=== PATIENT | male | born 1950 | race Two or more races ===

== ENCOUNTER 2017-10-18 07:32 | Inpatient (IN) | payer OTHER, MEDICARE ==
[~2017-10-18] VITALS: Ht 170.2 cm; Wt 72.6 kg
[2017-10-18 09:13] LABS: BASOPHILS % 1.4 % (0.0-2.0); HEMATOCRIT. 25.8 % (42.0-52.0); HEMOGLOBIN. 7.9 g/dL (14.0-18.0); LYMPHOCYTES % 34.2 % (20.0-50.0); MEAN CORPUSCULAR HEMOGLOBIN 18.4 pg (28.0-32.0); MEAN CORPUSCULAR VOLUME 60.1 fL (80.0-94.0); MONOCYTES % 8.4 % (2.0-8.0); RED BLOOD CELL COUNT 4.29 mill/uL (4.7-6.1); RED CELL DISTRIBUTION WIDTH 18.6 % (11.6-14.6)
[2017-10-18 09:21] LABS: CHLORIDE 104 mEq/L (98-107)
[2017-10-18 09:29] LABS: ETHANOL BLOOD < 10 mg/dL
[2017-10-18 09:40] LABS: PLATELET ESTIMATE NORMAL
[2017-10-18 10:15] LABS: CLARITY URINE CLEAR (CLEAR); COLOR URINE YELLOW (YELLOW); KETONES URINE NEGATIVE (NEGATIVE); LEUKOCYTE ESTERASE URINE NEGATIVE (NEGATIVE); NITRITE URINE NEGATIVE (NEGATIVE); OCCULT BLOOD URINE NEGATIVE (NEGATIVE); PROTEIN URINE NEGATIVE (NEGATIVE)
[2017-10-18 10:41] LABS: *AMPHETAMINES SCREEN URINE NEGATIVE (NEGATIVE); CANNABINOID URINE SCREEN NEGATIVE (NEGATIVE)
[2017-10-18 10:42] LABS: *BARBITURATES SCREEN URINE NEGATIVE (NEGATIVE); *BENZODIAZEPINES SCREEN URINE NEGATIVE (NEGATIVE); *COCAINE SCREEN URINE NEGATIVE (NEGATIVE)
[2017-10-18 10:43] LABS: METHADONE URINE SCREEN NEGATIVE (NEGATIVE); OPIATES URINE SCREEN NEGATIVE (NEGATIVE); PHENCYCLIDINE URINE SCREEN NEGATIVE (NEGATIVE)
[2017-10-18] MEDS ORDERED: IOHEXOL-300 100 ML BOTTLE ONE (11:27)
[2017-10-18] MEDS ORDERED: BENZONATATE 100MG CAPSULE PO PRN (13:30)
[2017-10-18] MEDS ORDERED: ALBUTEROL (0.5%) 2.5MG/0.5ML NEB HHN ONE (13:30)
[2017-10-18 16:26] VITALS: BP 146/76
[2017-10-18] MEDS ORDERED: IPRATROPIUM/ALBUTEROL 0.5-3(2.5)MG/3ML NEB INH PRN (18:30)
[2017-10-18] MEDS ORDERED: DIPHENHYDRAMINE 50MG/ML VIAL IV PRN (18:30)
[2017-10-18] MEDS ORDERED: ACETAMINOPHEN 325MG TABLET PO PRN (18:30)
[2017-10-18] MEDS ORDERED: KETOROLAC 30MG/ML VIAL IV PRN (18:30)
[2017-10-18] MEDS ORDERED: MAGNESIUM/ALUMINUM HYDROXIDE/SIMETHICONE 30ML UDC PO PRN (19:00)
[2017-10-18] MEDS ORDERED: ONDANSETRON 4MG ODT PO PRN (19:15)
[2017-10-18] MEDS: SODIUM CHLORIDE 0.9% 1,000 ML IV SCH ×2 (19:15→22:02)
[2017-10-18 19:54] LABS: TOTAL IRON BINDING CAPACITY 379 ug/dL (250-450)
[2017-10-18 20:00] VITALS: BP 115/70
[2017-10-18] MEDS ORDERED: IRON SUCROSE COMPLEX 100 MG/5 ML ML IV SCH (20:00)
[2017-10-18 20:24] LABS: CARCINO EMBRYONIC ANTIGEN 2.5 ng/ml
[2017-10-18] MEDS ORDERED: CYANOCOBALAMIN 1000MCG/ML VIAL IM NR (23:45)
[2017-10-19] VITALS: BP 105/72
[2017-10-19 04:30] VITALS: BP 111/55
[2017-10-19 05:41] LABS: HEMATOCRIT 25.2 % (42.0-52.0); HEMOGLOBIN 7.6 g/dL (14.0-18.0); MEAN CORPUSCULAR HEMOGLOBIN 18.2 pg (28.0-32.0); MEAN CORPUSCULAR VOLUME 60.6 fL (80.0-94.0); PLATELET 421 x1000/uL (130-400); RED BLOOD CELL COUNT 4.15 mill/uL (4.7-6.1); RED CELL DISTRIBUTION WIDTH 18.8 % (11.6-14.6)
[2017-10-19 08:00] VITALS: BP 124/62
[2017-10-19] MEDS ORDERED: LISI10TA5 PO (09:33)
[2017-10-19] MEDS ORDERED: ASPI-1159 PO (09:33)
[2017-10-19] MEDS ORDERED: OMEP20TA2 PO (09:33)
[2017-10-19 12:04] VITALS: BP 118/54
[2017-10-19 13:01] VITALS: BP 121/60
== END 2017-10-19 13:38 | disposition home or self-care (01) | DRG 379 ==
LOC: ER 07:32 → 7WST 13:16 → EDBEDREQ 13:19 → EDBEDREQTM 13:19 → ENRESERV 13:29
PROVIDERS: ADMIT Internal Medicine; ATTEND Internal Medicine
DX: K92.2 Gastrointestinal hemorrhage, unspecified (principal); I10 Essential (primary) hypertension; D50.9 Iron deficiency anemia, unspecified; Z79.899 Other long term (current) drug therapy
CPT/HCPCS: 36415; 71045; 74177; 80053; 80305; 81003; 82378; 82607; 82962; 83540; 83550; 83605; 83690; 83880; 84484; 85025; 85027; 93005; 99285; G0482; J3420; J7030; Q9967

== ENCOUNTER 2022-02-04 15:28 | Inpatient (IN) | payer MEDICARE, OTHER ==
[~2022-02-04] VITALS: Ht 167.6 cm; Wt 68.5 kg
[~2022-02-04 15:28] MED LIST: ASPI-1497 PO; LISI10TA26 PO; OMEP20TA23 PO
[2022-02-04 16:17] LABS: BG BASE EXCESS -4.1 mmol/L (-2.0-2.0); BG CARBOXYHEMOGLOBIN 0.4 % (0.5-1.5); BG DEOXYHEMOGLOBIN 2.5 % (0.0-5.0); BG FRACTION INSPIRED OXYGEN 21; BG HCO3 ACT 20.3 mmol/L (22.0-26.0); BG METHEMOGLOBIN 0.4 % (0.0-1.5); BG OXYGEN SATURATION 97.5 % (92.0-98.5); BG OXYHEMOGLOBIN 96.7 % (94.0-97.0); BG PCO2 34.7 mmHg (35.0-45.0); BG PH 7.386 (7.350-7.450); BG PO2 111.5 mmHg (75.0-100.0); BG SAMPLE SITE RIGHT RADIAL; BG TOTAL HEMOGLOBIN 10.9 g/dL (12.0-18.0); BG VENT MODE ROOM AIR
[2022-02-04 16:55] LABS: BASOPHILS % 0.2 % (0.0-2.0); EOSINOPHILS % 1.1 % (0.0-5.0); HEMATOCRIT. 31.1 % (42.0-52.0); HEMOGLOBIN. 10.2 g/dL (14.0-18.0); MEAN CORPUSCULAR HEMOGLOBIN 28.3 pg (28.0-32.0); MEAN CORPUSCULAR VOLUME 86.2 fL (80.0-94.0); MEAN PLATELET VOLUME 7.6 fl (7.4-10.4); MONOCYTES % 2.8 % (2.0-8.0); NEUTROPHILS % 86.9 % (40.0-76.0); PLATELET 242 x1000/uL (130-400); RED BLOOD CELL COUNT 3.62 mill/uL (4.7-6.1); RED CELL DISTRIBUTION WIDTH 17.9 % (11.6-14.6)
[2022-02-04 17:01] LABS: CHLORIDE 106 mEq/L (98-107)
[2022-02-04 17:03] LABS: PROTHROMBIN TIME 10.8 sec (9.6-11.0)
[2022-02-04 17:17] LABS: CREATINE KINASE 26 IU/L (39-308); ETHANOL BLOOD < 10 mg/dL
[2022-02-04] MEDS ORDERED: CEFTRIAXONE 1 G PREMIX 50 ML IV ONE (17:45)
[2022-02-04] MEDS ORDERED: SODIUM CHLORIDE 0.9% 1000ML BAG (SEPSIS BOLUS) IV ONE (17:45)
[2022-02-04 20:20] LABS: CLARITY URINE CLEAR (CLEAR); COLOR URINE YELLOW (YELLOW); KETONES URINE NEGATIVE (NEGATIVE); LEUKOCYTE ESTERASE URINE NEGATIVE (NEGATIVE); NITRITE URINE NEGATIVE (NEGATIVE); OCCULT BLOOD URINE NEGATIVE (NEGATIVE); PH URINE 5.5 (4.5-8.0); PROTEIN URINE TRACE (NEGATIVE); SPECIFIC GRAVITY URINE 1.017 (1.005-1.030); UROBILINOGEN URINE 0.2 E.U./dL (0.2-1.0)
[2022-02-04 20:51] LABS: *AMPHETAMINES SCREEN URINE NEGATIVE (NEGATIVE); *BARBITURATES SCREEN URINE NEGATIVE (NEGATIVE); *BENZODIAZEPINES SCREEN URINE NEGATIVE (NEGATIVE); *COCAINE SCREEN URINE NEGATIVE (NEGATIVE); CANNABINOID URINE SCREEN NEGATIVE (NEGATIVE); METHADONE URINE SCREEN NEGATIVE (NEGATIVE); OPIATES URINE SCREEN NEGATIVE (NEGATIVE); PHENCYCLIDINE URINE SCREEN NEGATIVE (NEGATIVE)
[2022-02-05 02:07] VITALS: BP 138/63
[2022-02-05] MEDS ORDERED: TC1U15 TP (02:28)
[2022-02-05] MEDS ORDERED: LISI20TA31 PO (02:28)
[2022-02-05] MEDS ORDERED: PRED10TA23 PO (02:28)
[2022-02-05 08:00] VITALS: BP 155/76
[2022-02-05] MEDS ORDERED: TRAMADOL 50MG TABLET PO PRN (08:15)
[2022-02-05] MEDS ORDERED: DOCUSATE SODIUM 100MG CAPSULE PO PRN (08:15)
[2022-02-05] MEDS ORDERED: ONDANSETRON HCL 4MG/2ML INJ IV PRN (08:15)
[2022-02-05] MEDS ORDERED: MAGNESIUM/ALUMINUM HYDROXIDE/SIMETHICONE 30ML UDC PO PRN (08:15)
[2022-02-05] MEDS ORDERED: GUAIFENESIN 200MG/10ML SUGAR FREE UDC PO PRN (08:15)
[2022-02-05] MEDS ORDERED: NALOXONE HCL 0.4MG/ML VIAL IV PRN (08:15)
[2022-02-05] MEDS ORDERED: ACETAMINOPHEN 325MG TABLET PO PRN (08:15)
[2022-02-05] MEDS: AMLODIPINE 10MG TABLET PO SCH (08:49)
[2022-02-05] MEDS: ENOXAPARIN 40MG/0.4ML SYR SUBCUT SCH (08:49)
[2022-02-05] MEDS ORDERED: NITROGLYCERIN 0.4MG TABLET SL SL PRN (11:00)
[2022-02-05] MEDS ORDERED: BENZONATATE 100MG CAPSULE PO PRN (11:00)
[2022-02-05 12:25] VITALS: BP 135/59
[2022-02-05 16:00] VITALS: BP 137/55
[2022-02-05 20:00] VITALS: BP 134/59
[2022-02-05] MEDS: HYDROCORTISONE 2.5% OINT 20GM TOP SCH (21:19)
[2022-02-05] MEDS: TRIAMCINOLONE ACETONIDE 0.1 % OINT 15GM TOP SCH (21:20)
[2022-02-05] MEDS: FLUOCINONIDE 0.05% CREAM 15GM TOP SCH (21:20)
[2022-02-06] VITALS: BP 116/60
[2022-02-06 04:00] VITALS: BP 107/54
[2022-02-06] MEDS: HYDROCORTISONE 2.5% OINT 20GM TOP SCH ×2 (05:54→21:45)
[2022-02-06] MEDS: TRIAMCINOLONE ACETONIDE 0.1 % OINT 15GM TOP SCH ×3 (05:54→22:00)
[2022-02-06] MEDS: FLUOCINONIDE 0.05% CREAM 15GM TOP SCH ×2 (05:54→22:00)
[2022-02-06 07:46] LABS: EOSINOPHILS % 4.8 % (0.0-5.0); HEMATOCRIT. 38.3 % (42.0-52.0); HEMOGLOBIN. 12.7 g/dL (14.0-18.0); LYMPHOCYTES % 45.4 % (20.0-50.0); MEAN CORPUSCULAR HEMOGLOBIN 28.1 pg (28.0-32.0); MEAN CORPUSCULAR VOLUME 84.9 fL (80.0-94.0); MEAN PLATELET VOLUME 7.9 fl (7.4-10.4); MONOCYTES % 2.5 % (2.0-8.0); NEUTROPHILS % 46.3 % (40.0-76.0); PLATELET 305 x1000/uL (130-400); RED BLOOD CELL COUNT 4.51 mill/uL (4.7-6.1); RED CELL DISTRIBUTION WIDTH 17.7 % (11.6-14.6)
[2022-02-06 07:51] LABS: CHLORIDE 104 mEq/L (98-107)
[2022-02-06 08:03] VITALS: BP 111/56
[2022-02-06 08:17] LABS: HDL CHOLESTEROL 91 mg/dL (40-59); LDL CHOLESTEROL 77 mg/dL (5-100)
[2022-02-06] MEDS: AMLODIPINE 10MG TABLET PO SCH (08:40)
[2022-02-06] MEDS: ENOXAPARIN 40MG/0.4ML SYR SUBCUT SCH (08:59)
[2022-02-06 12:03] VITALS: BP 102/81
[2022-02-06 16:00] VITALS: BP 122/62
[2022-02-06 20:00] VITALS: BP 101/39
[2022-02-07] VITALS: BP 105/40
[2022-02-07 04:00] VITALS: BP 100/39
[2022-02-07] MEDS: TRIAMCINOLONE ACETONIDE 0.1 % OINT 15GM TOP SCH ×2 (06:00→13:13)
[2022-02-07] MEDS: HYDROCORTISONE 2.5% OINT 20GM TOP SCH ×2 (06:00→13:15)
[2022-02-07] MEDS: FLUOCINONIDE 0.05% CREAM 15GM TOP SCH ×2 (06:00→13:12)
[2022-02-07 07:54] VITALS: BP 119/60
[2022-02-07 08:10] LABS: BASOPHILS % 0.7 % (0.0-2.0); HEMATOCRIT. 31.2 % (42.0-52.0); HEMOGLOBIN. 10.2 g/dL (14.0-18.0); LYMPHOCYTES % 37.4 % (20.0-50.0); MEAN PLATELET VOLUME 7.8 fl (7.4-10.4); MONOCYTES % 4.6 % (2.0-8.0); NEUTROPHILS % 52.3 % (40.0-76.0); PLATELET 243 x1000/uL (130-400); RED BLOOD CELL COUNT 3.63 mill/uL (4.7-6.1); RED CELL DISTRIBUTION WIDTH 17.6 % (11.6-14.6)
[2022-02-07 09:04] LABS: CHLORIDE 105 mEq/L (98-107)
[2022-02-07] MEDS: ENOXAPARIN 40MG/0.4ML SYR SUBCUT SCH (09:07)
[2022-02-07] MEDS: AMLODIPINE 10MG TABLET PO SCH (09:07)
[2022-02-07 12:00] VITALS: BP 121/56
[2022-02-07 13:43] VITALS: BP 125/56
== END 2022-02-07 14:40 | disposition home health service (06) | DRG 640 ==
LOC: ER 15:45 → EDBEDREQ 15:54 → EDBEDREQSVC 19:52 → EDBEDREQTM 19:52 → MICUSO 02-05 00:28 → 6WST 02-05 00:41 → 8WST 02-07 11:23
PROVIDERS: ADMIT Hospitalist; ATTEND Hospitalist
DX: E86.0 Dehydration (principal); E43 Unspecified severe protein-calorie malnutrition; K85.90 Acute pancreatitis without necrosis or infection, unspecified; R57.9 Shock, unspecified; E87.20 Acidosis, unspecified; I11.9 Hypertensive heart disease without heart failure; L40.9 Psoriasis, unspecified; R73.9 Hyperglycemia, unspecified; R00.1 Bradycardia, unspecified; R73.03 Prediabetes; Z68.24 Body mass index [BMI] 24.0-24.9, adult; Z86.73 Personal history of transient ischemic attack (TIA), and cerebral infarction without residual deficits
CPT/HCPCS: 36415; 36600; 71045; 74176; 80053; 80061; 80305; 80307; 80320; 80329; 81003; 82140; 82375; 82550; 82805; 83036; 83605; 83880; 84145; 84439; 84443; 84484; 85025; 86850; 86900; 87426; 93005; 93306; 93970; 97162; 99285; J0696; J1650; J7030; G0480